=== PATIENT | female | born 1965 | race Caucasian/White ===

== ENCOUNTER → 2022-03-21 | Emergency (ER) | payer OTHER ==
[~2022-03-21] VITALS: Ht 154.9 cm; Wt 12.2 kg
[~2022-03-21] MED LIST: DEPAKOTE ER500 MG; VIT BALANCED B-1 TAB
== END | disposition home or self-care (01) ==
LOC: ER 15:16
DX: S00.93XA Contusion of unspecified part of head, initial encounter (principal); W18.30XA Fall on same level, unspecified, initial encounter; Y93.89 Activity, other specified; Y92.010 Kitchen of single-family (private) house as the place of occurrence of the external cause; Y99.9 Unspecified external cause status; I10 Essential (primary) hypertension